=== PATIENT | male | born 1980 | race American Indian/Alaskan Native ===

== ENCOUNTER 2019-03-13 08:29 | Emergency (ER) | payer SELFPAY ==
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
[2019-03-13 13:51] VITALS: BP 148/99
== END 2019-03-13 13:50 | disposition home or self-care (01) ==
LOC: ED 08:29
DX: J40 Bronchitis, not specified as acute or chronic (principal); F12.10 Cannabis abuse, uncomplicated